=== PATIENT | female | born 1960 | race Caucasian/White ===

== ENCOUNTER 2017-08-08 12:50 | Inpatient (IN) | payer OTHER ==
[~2017-08-08] VITALS: Ht 154.9 cm; Wt 69.2 kg
[2017-08-08] VITALS (10 sets, daily range): BP systolic 69–102; BP diastolic 52–70
[~2017-08-08 12:50] MED LIST: CRESTOR10 MG PO; CYMBALTA30 MG PO; DIOVAN160 MG PO; HYDROCHLOROTH12.5 M1 PO; INVOKANA PO; PROBIOTIC & AC1 EACH PO; VICTOZA 2-0.6 MG/0.1 SQ
[2017-08-08] MEDS ORDERED: SODIUM CHLORIDE 0.9% 1000ML 1,000 ML IV STA (13:32)
[2017-08-08] MEDS ORDERED: ALBUTEROL/IPRATROPIUM 3 ML NEB NEB ONE (13:45)
[2017-08-08 13:54] LABS: BASOPHILS # (AUTO) 0.1 (0.0-0.1); BASOPHILS % 0.5 % (0.0-1.0); EOSINOPHILS % 0.1 % (0.0-6.0); HEMATOCRIT 46.8 % (34.2-44.1); HEMOGLOBIN 15.8 g/dL (12.0-16.0); LYMPHOCYTES # (AUTO) 0.9 (1.0-3.2); LYMPHOCYTES % 5.5 % (18.0-39.1); MEAN CORPUSCULAR HEMOGLOBIN 27.6 pg (28-32); MEAN CORPUSCULAR HGB CONC 33.8 g/dL (31-35); MEAN CORPUSCULAR VOLUME 81.8 fL (81-99); MONOCYTES # (AUTO) 0.2 (0.2-0.8); MONOCYTES % 1.1 % (4.4-11.3); NEUTROPHILS # (AUTO) 14.4 (2.1-6.9); NEUTROPHILS % 92.5 % (38.7-80.0); PLATELET COUNT 386 x10e3/uL (140-360); RED BLOOD COUNT 5.72 x10e6/uL (3.6-5.1); RED CELL DISTRIBUTION WIDTH 14.3 % (11.7-14.4)
[2017-08-08 14:03] LABS: INR 1.48; PARTIAL THROMBOPLASTIN TIME 28.9 seconds (23.8-35.5); PROTHROMBIN TIME 16.8 seconds (11.9-14.5)
[2017-08-08 14:12] LABS: ALANINE AMINOTRANSFERASE 37 IU/L (0-55); ALBUMIN 3.4 g/dL (3.5-5.0); ALKALINE PHOSPHATASE 132 IU/L (40-150); ANION GAP 17.7 mmol/L (8-16); BLOOD UREA NITROGEN 14 mg/dL (7-26); BUN/CREATININE RATIO 17 (6-25); CALCIUM 9.5 mg/dL (8.4-10.2); CARBON DIOXIDE 24 mmol/L (22-29); CHLORIDE 98 mmol/L (98-107); CREATINE KINASE 36 IU/L (29-168); CREATININE, SERUM 0.83 mg/dL (0.57-1.11); EST GLOMERULAR FILTRATION RATE > 60 ML/MIN (60-); GLUCOSE 88 mg/dL (74-118); POTASSIUM 3.7 mmol/L (3.5-5.1); SODIUM 136 mmol/L (136-145)
--- NOTE | 2017-08-08 14:46 | Diagnostic Imaging Report ---
PROCEDURE: Frontal and lateral views of the chest. COMPARISON: Patients [facility], , CHEST 2 VIEWS, 11/02/2013, 17:27. INDICATIONS: COUGH, COLD. FINDINGS: Lines/tubes: None. Lungs: Extensive patchy nodular density throughout the lungs associated with bronchial thickening consistent with multifocal pneumonia. Pleura: There is no pleural effusion or pneumothorax. Heart and mediastinum: The heart and the mediastinum are normal. Bones: No acute bony abnormality. IMPRESSION: Findings consistent with bilateral multifocal bronchopneumonia. Recommend followup after treatment is recommended to complete resolution. Sosa Renner M.D. Dictated by: Sosa Renner M.D. on 08/08/2017 at 14:50 Electronically approved by: Sosa Renner M.D. on 08/08/2017 at 14:50
[2017-08-08] MEDS ORDERED: LEVOFLOXACIN 750MG/D5W 150ML 150 ML IV STA (15:06)
[2017-08-08] MEDS: CEFTRIAXONE SOD 1 GM VIAL IV SCH (15:30)
[2017-08-08] MEDS ORDERED: LEVOFLOXACIN 750MG/DEXTROSE PREMIX BAG 150ML IV SCH (15:45)
[2017-08-08] MEDS ORDERED: ASPIRIN 81 MG CHEW TAB PO ONE (15:45)
[2017-08-08] MEDS ORDERED: NICOTINE 21 MG/EA PATCH TOP SCH (15:45)
[2017-08-08] MEDS: ALBUTEROL SULF 0.083% NEB SOLN 3 ML NEB NEB SCH ×3 (15:45→23:40)
[2017-08-08] MEDS ORDERED: LEVOFLOXACIN 750MG/D5W 150ML 150 ML IV SCH (16:02)
[2017-08-08] MEDS ORDERED: PROMETHAZINE-D118 ML PO (19:23)
[2017-08-08] MEDS ORDERED: CRESTOR10 MG PO (19:23)
[2017-08-08] MEDS ORDERED: DIOVAN HCT 3201 EAC1 PO (19:23)
[2017-08-08] MEDS ORDERED: CETIRIZINE HCL10 MG PO (19:23)
[2017-08-08] MEDS ORDERED: VICTOZA 2-0.6 MG/0.1 (19:23)
[2017-08-08] MEDS ORDERED: AUGMENTIN 875-1 EACH PO (19:23)
[2017-08-08] MEDS ORDERED: CYMBALTA30 MG PO (19:23)
[2017-08-08] MEDS ORDERED: ALBUTEROL0.63 MG/3 INH (19:23)
[2017-08-08] MEDS: IPRATROPIUM BROMIDE 0.02% 2.5 ML NEB NEB SCH (19:30)
[2017-08-08] MEDS: HYDROCODONE/APAP 5MG-325MG TAB PO PRN (22:02)
[2017-08-08] MEDS: BENZONATATE 100 MG CAP PO SCH (23:16)
[2017-08-09] VITALS (69 sets, daily range): BP systolic 63–139; BP diastolic 22–114
[2017-08-09] MEDS: CEFTRIAXONE SOD 1 GM VIAL IV SCH (03:10)
[2017-08-09] MEDS: ALBUTEROL SULF 0.083% NEB SOLN 3 ML NEB NEB SCH ×3 (03:15→10:45)
[2017-08-09] MEDS: IPRATROPIUM BROMIDE 0.02% 2.5 ML NEB NEB SCH ×5 (03:15→23:50)
[2017-08-09 03:55] LABS: CREATINE KINASE MB 2.9 ng/mL (0-5.0)
[2017-08-09] MEDS: HYDROCODONE/APAP 5MG-325MG TAB PO PRN (05:08)
[2017-08-09] MEDS: BENZONATATE 100 MG CAP PO SCH ×4 (05:20→23:21)
[2017-08-09 06:16] LABS: BASOPHILS # (AUTO) 0.1 (0.0-0.1); BASOPHILS % 0.4 % (0.0-1.0); EOSINOPHILS # (AUTO) 0.1 (0.0-0.4); EOSINOPHILS % 0.4 % (0.0-6.0); HEMOGLOBIN 13.9 g/dL (12.0-16.0); LYMPHOCYTES # (AUTO) 2.2 (1.0-3.2); LYMPHOCYTES % 13.9 % (18.0-39.1); MEAN CORPUSCULAR HEMOGLOBIN 27.3 pg (28-32); MEAN CORPUSCULAR HGB CONC 33.1 g/dL (31-35); MEAN CORPUSCULAR VOLUME 82.4 fL (81-99); MONOCYTES # (AUTO) 0.4 (0.2-0.8); MONOCYTES % 2.5 % (4.4-11.3); NEUTROPHILS # (AUTO) 13.1 (2.1-6.9); NEUTROPHILS % 82.5 % (38.7-80.0); PLATELET COUNT 368 x10e3/uL (140-360); RED CELL DISTRIBUTION WIDTH 14.3 % (11.7-14.4)
--- NOTE | 2017-08-09 06:21 | Diagnostic Imaging Report ---
EXAM: CHEST SINGLE (PORTABLE), AP 1 view INDICATION: Pneumonia COMPARISON: PA and lateral view of the chest August 08, 2017 FINDINGS: LINES/TUBES: None LUNGS: Worsening bilateral airspace opacities. PLEURA: Suspected bilateral pleural effusions. HEART AND MEDIASTINUM: Cardiomegaly. BONES AND SOFT TISSUES: No acute findings. IMPRESSION: Findings could represent worsening multifocal pneumonia and/or worsening pulmonary edema. Signed by: Dr. Sinai Almonte M.D. on 08/09/2017 6:17 AM
[2017-08-09 06:24] LABS: ANION GAP 16.3 mmol/L (8-16); CREATININE, SERUM 1.11 mg/dL (0.57-1.11); POTASSIUM 4.3 mmol/L (3.5-5.1)
[2017-08-09] MEDS ORDERED: FUROSEMIDE INJ 10 MG/ML 4 ML VIAL ONE (10:02)
[2017-08-09] MEDS ORDERED: FUROSEMIDE INJ 10 MG/ML 4 ML VIAL IV ONE ×2 (10:30→12:45)
[2017-08-09] MEDS: VANCOMYCIN 750MG/NS 150ML IVPB 150 ML IV SCH ×3 (11:30→23:30)
[2017-08-09] MEDS ORDERED: DEXTROSE 50% SYRINGE 50 ML IV PRN (11:45)
[2017-08-09] MEDS ORDERED: SODIUM CHLORIDE 0.9% 250ML 250 ML ONE ×2 (11:48→15:10)
[2017-08-09] MEDS ORDERED: AZITHROMYCIN 500MG/NS 250 ML 250 ML IV SCH (12:00)
[2017-08-09] MEDS ORDERED: LEVALBUTEROL HCL SOLN NEBU 1.25 MG/3 ML NEB INH PRN (12:45)
[2017-08-09 12:47] LABS: ABG PH 7.39 (7.31-7.41)
[2017-08-09 12:48] LABS: ABG HCO3 21 mmol/L (23-28); ABG PCO2 34 mmHg (41-51); ABG PO2 134 mmHg (80-105)
[2017-08-09] MEDS ORDERED: ETOMIDATE 2 MG/ML 10 ML INJ IV ONE (13:06)
[2017-08-09] MEDS ORDERED: SUCCINYLCHOLINE CHLORIDE 20 MG/ML 10ML VIAL ONE (13:06)
[2017-08-09] MEDS ORDERED: MIDAZOLAM HCL 2 MG/2 ML VIAL ONE ×2 (13:06→16:54)
[2017-08-09] MEDS ORDERED: VECURONIUM BROMIDE FOR INJ 20 MG VIAL ONE (13:06)
[2017-08-09] MEDS: LEVALBUTEROL HCL SOLN NEBU 1.25 MG/3 ML NEB INH SCH ×3 (13:40→23:50)
[2017-08-09] MEDS ORDERED: SODIUM CHLORIDE FLUSH 10 ML SYR INJ PRN (14:00)
--- NOTE | 2017-08-09 14:04 | Diagnostic Imaging Report ---
EXAMINATION: CHEST SINGLE (PORTABLE) INDICATION: \S\S/P INTUBATION COMPARISON: Chest x-ray 08/09/2017. 08/08/2017. FINDINGS: AP view TUBES and LINES: Endotracheal tube tip is 3.6 cm above the james. Nasogastric tube tip courses below the diaphragm. LUNGS: Lungs are not well inflated. Worsening diffuse airspace opacities. PLEURA: No pleural effusion or pneumothorax. HEART AND MEDIASTINUM: Cardiac size is severely enlarged. BONES AND SOFT TISSUES: No acute osseous lesion. Soft tissues are unremarkable. UPPER ABDOMEN: No free air under the diaphragm. IMPRESSION: 1. Endotracheal tube and nasogastric tube are in good position. 2. Worsening pulmonary edema. Signed by: Dr. Abram Paez M.D. on 08/09/2017 2:01 PM
--- NOTE | 2017-08-09 14:19 | History and Physical ---
CHIEF COMPLAINT: Acute hypoxia with respiratory failure. HISTORY: This is a 56-year-old female overall healthy in general, but approximately a few months ago she developed increase in worsening shortness of breath and more aggressive. She noticed that she has some difficulty breathing when she exerts herself approximately 1-1/2 years ago. She did not seek any medical retention. The patient for the past week or so she was having problems with breathing where she could not even increase any activity. She came to the hospital here with hypoxia. She required BiPAP now for respiratory support. Her x-rays in the emergency room showed significant infiltrate. Could be from pulmonary edema versus pneumonia. The patient's EF is approximately 20% on preliminary echocardiogram. The patient is on BiPAP now. The patient is near respiratory failure. May need to be intubated. PAST MEDICAL HISTORY: Noncontributory. No history of diagnosis of heart failure or coronary disease. She does have dyslipidemia, hypertension and allergic rhinitis, diabetes, type 2. PAST SURGICAL HISTORY: Noncontributory. SOCIAL HISTORY: Patient does not smoke or use alcohol. No regular drugs. ALLERGIES: CODEINE. HOME MEDICATIONS: Nebulizer treatments, Augmentin, Zyrtec, promethazine, Cymbalta, Victoza, Crestor, and losartan with hydrochlorothiazide. PHYSICAL EXAMINATION VITAL SIGNS: Temperature is 98, blood pressure 112/49, pulse rate is 119, respirations 22. Patient is on BiPAP support. HEENT: Normocephalic, atraumatic and anicteric. NECK: Supple grossly. Possible JVD. PULMONARY: Diminished breath sounds bilaterally with rales at the bases. CARDIOVASCULAR: S1 and S2. Tachycardia. Distant heart sounds. ABDOMEN: Soft. EXTREMITIES: One plus edema. NEUROLOGIC: No focal deficit. LABORATORY: Sodium 132, potassium 4.3, chloride 97, bicarb 23, BUN 22, creatinine 1.1, glucose is 126. WBC is 15.8, hemoglobin 13.9, hematocrit 42, and platelets are 368,000. Chest x-ray with possible heart failure versus bronchopneumonia versus multifocal pneumonia. PLAN: CT of the chest without contrast or with contrast. A 2-D echocardiogram already done with EF of approximately 20%. Continue with BiPAP support. Insulin sliding scale coverage. Repeat lab work. Check TSH and glycohemoglobin A1c. Repeat lab work in the morning. IV Lasix. Antibiotics. Job#: [id number] [place]
--- NOTE | 2017-08-09 15:00 | Consultation ---
DATE OF CONSULTATION: PULMONARY CONSULTATION A 56-year-old woman admitted with shortness of breath of approximately 3 weeks duration and has been progressive. Cough has been nonproductive and worsening dyspnea for the last week. She was suddenly short of breath this morning going to the restroom without her oxygen. She has no history of heart failure, coronary disease or ND. History of anxiety, history of hypertension. History of insulin-dependent diabetes. ALLERGIES: SHE IS ALLERGIC TO CODEINE. MEDICATIONS: Have included Augment, sertraline, insulin, Valsartan, hydrochlorothiazide, Duloxetine, and Crestor. Smokes half a pack a day. 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 FAMILY HISTORY: Positive for cancer of the lung and breast. PHYSICAL EXAMINATION GENERAL: She is anxious and on BiPAP, but communicative and jovial. VITALS: Temperature 97.9, pulse 119, blood pressure 95/60. HEENT: Head is normocephalic and atraumatic. Eyes: Extraocular movements intact. LUNGS: Bilateral rales. HEART: Regular rhythm and tachycardia. ABDOMEN: Nontender. EXTREMITIES: There is clubbing. IMPRESSION 1. Congestive heart failure: Pulmonary emboli seems unlikely though D-dimer is elevated. 2. Atypical pneumonia, possible viral. 3. Pleural carditis: Ejection fraction is less than 20%. PLAN: Empiric antibiotics. Bronchodilators. Therapy for congestive heart failure. Monitor blood sugars. ICU care. Thank you for this kind referral. Job#: [id number] [place]
[2017-08-09] MEDS: LEVOFLOXACIN 750MG/D5W 150ML 150 ML IV SCH (15:15)
--- NOTE | 2017-08-09 15:32 | Consultation ---
DATE OF CONSULTATION: August 09, 2017 CARDIOLOGY CONSULTATION Ms. Zhang is a pleasant 56-year-old woman with a history of hypertension and diabetes. She does not see doctors on a regular basis. CHIEF COMPLAINT: She presented to the emergency room at [facility] on the evening of August 08, 2017, with the complaint of progressive shortness of breath. HISTORY OF PRESENT ILLNESS: The patient denies any chest pains or palpitations to me. She denies any edema. She reports that she has gotten progressively short of breath, but continued to smoke. PAST MEDICAL HISTORY: Evidently significant for diabetes and hypertension, although she minimizes these things. She tells me she has only had a before. CURRENT MEDICATIONS: Listed are: 1. Crestor 10 mg daily. 2. Diovan 160 mg daily. 3. Victoza injection 1.8 mg daily. 4. Invokana 300 mg daily. 5. Probiotic capsules. PERSONAL AND SOCIAL HISTORY: She has been smoking since her teenage years. REVIEW OF SYSTEMS: Not available as she is using CPAP mask. PHYSICAL EXAMINATION HEENT: Relatively unremarkable. VITALS: Blood pressure 89/50, pulse 110 and regular. NECK: Jugular venous distention not visible. THORAX: Heart sounds S1 and S2 are equal, but distant. No murmurs are audible. LUNGS: Have distant breath sounds. ABDOMEN: Protuberant. Normal bowel sounds. EXTREMITIES: No cyanosis, clubbing or edema visible. EKG shows sinus tachycardia with intraventricular conduction delay. Her BNP is 1106. CBC shows hemoglobin 13.9, hematocrit 42, white count 15.8, and platelets 368,000. Chemistry shows sodium 132, potassium 4.3, chloride 97, bicarb 23, glucose 126, BUN 22, creatinine 1.1. Chest x-ray shows cardiomegaly and fine bilateral infiltrates. Echocardiogram suggests ejection fraction less than 20% with septal dyskinesis and moderate mitral regurgitation. ASSESSMENT 1. Acute onset of congestive heart failure: Consider viral cardiomyopathy. 2. Mitral regurgitation. 3. History of diabetes. 4. History of hypertension. 5. History of hyperlipidemia. PLAN: The patient is requiring urgent intubation and will begin pressors as necessary. Will consider balloon pump and transfer. Further management based on clinical course. Thank for asking me to see this nice lady in consultation. Job#: [id number] [facility]:MD ALFONSO ZAPATA MD
[2017-08-09 15:37] LABS: ABG PCO2 59 mmHg (41-51); ABG PH 7.11 (7.31-7.41); ABG PO2 120 mmHg (80-105)
[2017-08-09 15:38] LABS: ABG HCO3 19 mmol/L (23-28)
[2017-08-09] MEDS ORDERED: NICOTINE 21 MG/EA PATCH TOP PRN (15:45)
[2017-08-09] MEDS ORDERED: HEPARIN SOD/SOD CHLORIDE 1,000 ML ONE (16:16)
[2017-08-09] MEDS ORDERED: LIDOCAINE HCL 2% LOCAL 20 ML VIAL ONE (16:16)
[2017-08-09] MEDS: INSULIN LISPRO 100 UNIT/1 ML 3ML VIAL SQ SCH ×2 (16:30→21:00)
[2017-08-09] MEDS ORDERED: FENTANYL CITRATE/PF 100MCG/2 ML INJ ONE (16:55)
[2017-08-09] MEDS ORDERED: ENOXAPARIN SOD INJ 40 MG/0.4 ML SYR SC SCH (17:00)
[2017-08-09 17:12] LABS: ABG HCO3 21 mmol/L (23-28); ABG PCO2 44 mmHg (41-51); ABG PH 7.27 (7.31-7.41); ABG PO2 136 mmHg (80-105)
[2017-08-09] MEDS ORDERED: HEPARIN SOD (PORCINE) 1000 UNIT/ML 30ML ONE (17:12)
[2017-08-09] MEDS ORDERED: SODIUM BICARBONATE 8.4% INJ 50 ML SYR IV ONE ×2 (17:45)
[2017-08-09] MEDS ORDERED: FUROSEMIDE INJ 10 MG/ML 2 ML VIAL IV SCH (18:00)
[2017-08-09] MEDS ORDERED: LORAZEPAM 1 MG TAB PO PRN (19:15)
[2017-08-09] MEDS: FENTANYL CITRATE INJ 2,000 MCG in SODIUM CHLORIDE 0.9% 250ML 210 ML IV PRN (19:28)
--- NOTE | 2017-08-09 19:28 | Diagnostic Imaging Report ---
ADDENDUM #1 Correction in findings: Intra-aortic balloon pump proximal tip in expected location of the proximal descending thoracic aorta. Signed by: Dr. Sinai Almonte M.D. on 08/10/2017 6:02 AM ORIGINAL REPORT EXAM: CHEST SINGLE (PORTABLE), AP 1 view INDICATION: Aortic balloon pump COMPARISON: AP view of the chest August 09, 2017 FINDINGS: LINES/TUBES: Endotracheal tube terminates 3.5 cm above the james. Intra-aortic balloon pump proximal tip terminates in expected location of the proximal superior vena cava. Nasal/orogastric tube terminates in the location of the body of the stomach. LUNGS: Persistent bilateral airspace opacities. PLEURA: Indeterminate for layering pleural effusions. HEART AND MEDIASTINUM: Cardiomegaly. BONES AND SOFT TISSUES: No acute findings. IMPRESSION: Interval placement of intra-aortic balloon pump with tip at expected location of the proximal descending thoracic aorta. Signed by: Dr. Sinai Almonte M.D. on 08/09/2017 7:24 PM
[2017-08-09] MEDS ORDERED: MIDAZOLAM HCL 2 MG/2 ML VIAL IV PRN (20:00)
[2017-08-09] MEDS: HEPARIN SOD (PORCINE) 5,000 UNIT/ML VIAL SC SCH (21:25)
[2017-08-10] VITALS (71 sets, daily range): BP systolic 65–139; BP diastolic 31–99
[2017-08-10] MEDS: LEVALBUTEROL HCL SOLN NEBU 1.25 MG/3 ML NEB INH SCH ×4 (03:10→15:10)
[2017-08-10] MEDS: IPRATROPIUM BROMIDE 0.02% 2.5 ML NEB NEB SCH ×4 (03:10→15:10)
[2017-08-10 05:43] LABS: BASOPHILS % 0.2 % (0.0-1.0); EOSINOPHILS # (AUTO) 0.1 (0.0-0.4); EOSINOPHILS % 0.7 % (0.0-6.0); HEMATOCRIT 43.9 % (34.2-44.1); HEMOGLOBIN 14.3 g/dL (12.0-16.0); LYMPHOCYTES # (AUTO) 1.4 (1.0-3.2); LYMPHOCYTES % 10.3 % (18.0-39.1); MEAN CORPUSCULAR HEMOGLOBIN 27.3 pg (28-32); MEAN CORPUSCULAR HGB CONC 32.6 g/dL (31-35); MEAN CORPUSCULAR VOLUME 83.9 fL (81-99); MONOCYTES # (AUTO) 0.3 (0.2-0.8); MONOCYTES % 1.9 % (4.4-11.3); NEUTROPHILS # (AUTO) 11.6 (2.1-6.9); NEUTROPHILS % 86.5 % (38.7-80.0); PLATELET COUNT 306 x10e3/uL (140-360); RED BLOOD COUNT 5.23 x10e6/uL (3.6-5.1); RED CELL DISTRIBUTION WIDTH 14.2 % (11.7-14.4)
[2017-08-10] MEDS: BENZONATATE 100 MG CAP PO SCH ×7 (05:46→08:53)
[2017-08-10 06:02] LABS: CALCIUM 9.3 mg/dL (8.4-10.2); CREATININE, SERUM 1.37 mg/dL (0.57-1.11)
--- NOTE | 2017-08-10 06:05 | Diagnostic Imaging Report ---
EXAM: CHEST SINGLE (PORTABLE), AP 1 view INDICATION: Pulmonary edema COMPARISON: AP view of the chest August 09, 2017 FINDINGS: LINES/TUBES: Stable endotracheal tube and nasal/oral gastric tube. IABP tip in expect location of the proximal descending aorta. LUNGS: Persistent bilateral airspace opacities. PLEURA: Indeterminate for layering pleural effusions bilaterally. HEART AND MEDIASTINUM: Cardiomegaly BONES AND SOFT TISSUES: No acute findings. IMPRESSION: No significant interval change in appearance of the chest. Signed by: Dr. Sinai Almonte M.D. on 08/10/2017 6:02 AM
[2017-08-10] MEDS: SODIUM CHLORIDE 0.9% 1000ML 1,000 ML IV SCH ×2 (06:31→15:07)
--- NOTE | 2017-08-10 06:57 | Operative Report ---
DATE OF PROCEDURE: ATTENDING PHYSICIAN: Dr. Jose Vargas INDICATION: Congestive heart failure and hypotension. TITLE OF PROCEDURE: Balloon pump and venous sheath placement. DESCRIPTION OF PROCEDURE: Patient brought to the syrup machine laborer on ventilator and partially sedated. Right groin is prepped with scrub and 2% Xylocaine. A 6-Ukrainian sheath is placed in the right common femoral artery and a 5-Ukrainian sheath is placed in the right common femoral vein. The venous sheath is sutured in place. Then the wire for the balloon pump is advanced through the sheath into the proximal aorta near the origin of the left subclavian artery. The sheath is removed. The dilator is used and then the balloon pump sheath is placed. It is sutured in place. Then the balloon catheter is attached to the balloon pump and is advanced in the location. Fluoroscopy demonstrates the location of the distal marker. The central pressure monitoring lumen is aspirated and flushed. The gas tubing is attached to the balloon. The sheath covering is advanced in the location and sutured in place as well and pumping is begun at 1:1. The patient remained hemodynamically stable during the procedure. No significant blood loss. No complication. She is returned to the intensive care unit to begin low-dose dopamine infusion at 2 mcg/kg per minute and to maintain a blood pressure of at least 90/60 as well. FINAL IMPRESSION: Successful balloon pump placement and successful venous sheath placement as well. Job#: [id number] cc:ALFONSO RUEDA MD
[2017-08-10] MEDS ORDERED: NOREPINEPHRINE 8 MG/D5W 250 ML 250 ML ONE (07:21)
[2017-08-10] MEDS ORDERED: NOREPINEPHRINE INJ 4MG/4ML 8 MG in DEXTROSE 5% 250ML 250 ML IV SCH (07:30)
[2017-08-10] MEDS: INSULIN LISPRO 100 UNIT/1 ML 3ML VIAL SQ SCH ×2 (07:30→11:30)
[2017-08-10] MEDS ORDERED: FUROSEMIDE INJ 10 MG/ML 4 ML VIAL IV SCH (08:00)
[2017-08-10] MEDS: FENTANYL CITRATE INJ 2,000 MCG in SODIUM CHLORIDE 0.9% 250ML 210 ML IV PRN (08:59)
[2017-08-10] MEDS ORDERED: PANTOPRAZOLE 40 MG 10ML VIAL IV SCH (09:00)
[2017-08-10] MEDS: MIDAZOLAM HCL 2 MG/2 ML VIAL IV PRN ×2 (09:17→10:39)
[2017-08-10] MEDS: HEPARIN SOD (PORCINE) 5,000 UNIT/ML VIAL SC SCH (09:29)
[2017-08-10] MEDS: MIDAZOLAM HCL 25 MG in SODIUM CHLORIDE 0.9% 50ML 45 ML IV PRN ×2 (11:45→14:15)
[2017-08-10] MEDS ORDERED: METHYLPREDNISOLONE SOD SUCC 40 MG/ML VIAL IV SCH (11:45)
[2017-08-10] MEDS ORDERED: ACETAMINOPHEN 1000 MG/100 ML IV PRN (13:00)
[2017-08-10] MEDS: VANCOMYCIN 750MG/NS 150ML IVPB 150 ML IV SCH (13:03)
[2017-08-10] MEDS: LEVOFLOXACIN 750MG/D5W 150ML 150 ML IV SCH (15:13)
[2017-08-10] MEDS ORDERED: INSULIN LISPRO 100 UNIT/1 ML 3ML VIAL SQ SCH (18:00)
== END 2017-08-10 16:24 | disposition short-term general hospital (02) | DRG 270 ==
LOC: ER 12:50 → ERHOLD 15:45 → MED/SURG2 16:53 → IMCU 08-09 10:36 → ICU 08-09 13:41
PROVIDERS: ADMIT Internal Medicine; ATTEND Internal Medicine
PROC: 5A02210 Assistance with Cardiac Output using Balloon Pump, Continuous (ICD-10-PCS; principal; 2017-08-08)
PROC: 0BH17EZ Insertion of Endotracheal Airway into Trachea, Via Natural or Artificial Opening (ICD-10-PCS; 2017-08-09)
PROC: 5A1945Z Respiratory Ventilation, 24-96 Consecutive Hours (ICD-10-PCS; 2017-08-09)
DX: I11.0 Hypertensive heart disease with heart failure (principal); J15.9 Unspecified bacterial pneumonia; J12.9 Viral pneumonia, unspecified; J96.01 Acute respiratory failure with hypoxia; R06.09 Other forms of dyspnea; I50.23 Acute on chronic systolic (congestive) heart failure; I42.9 Cardiomyopathy, unspecified; E78.5 Hyperlipidemia, unspecified; I25.10 Atherosclerotic heart disease of native coronary artery without angina pectoris; J84.10 Pulmonary fibrosis, unspecified; I34.0 Nonrheumatic mitral (valve) insufficiency; B33.24 Viral cardiomyopathy; F41.9 Anxiety disorder, unspecified; F17.210 Nicotine dependence, cigarettes, uncomplicated; E11.9 Type 2 diabetes mellitus without complications; Z79.4 Long term (current) use of insulin
CPT/HCPCS: 33967; 36140; 36415; 36600; 71045; 71046; 77002; 80048; 80053; 82550; 82553; 82607; 82805; 82948; 83036; 83880; 84443; 84484; 85025; 85379; 85610; 85730; 87040; 87070; 87205; 93005; 93306; 94002; 94003; 94640; 94660; 99285; J0330; J0456; J0696; J1644; J1940; J2001; J2250; J2920; J7030; J7050